=== PATIENT | male | born 1995 | race Caucasian/White ===

== ENCOUNTER 2017-02-15 13:32 | Emergency (ER) | payer OTHER ==
[2017-02-15 16:08] VITALS: BP 153/93
--- NOTE | 2017-02-15 16:22 | ED ---
Skin Complaint - HPI Summary HPI Summary: Pt here w/ ruptured cyst/abscess in Lt ear lobe, Has had a "lump" here for 1 year but thinks he may have bumped it over the weekend and popped it - past 2 days it's been red, swollen and tender. Denies fever, chills, enlarged LN's, neck pain/stiffness. Has not taken anything for pain. Reports he had the same issue in the Rt ear a few years ago - this required drainage and it improved after. Denies known h/o MRSA. - History of Current Complaint Chief Complaint: EDGeneral Time Seen by Provider: 02/15/17 15:35 Stated Complaint: ABSCESS ON EARLOBE Hx Obtained From: Patient Pain Intensity: 8 - Allergy/Home Medications Allergies/Adverse Reactions: Allergies Allergy/AdvReac Type Severity Reaction Status Date / Time No Known Allergies Allergy Verified 10/18/15 19:31 PMH/Surg Hx/FS Hx/Imm Hx Previously Healthy: Yes Endocrine/Hematology History: Denies: Hx Anticoagulant Therapy Psychiatric History: Reports: Hx Anxiety - Surgical History Surgery Procedure, Year, and Place: L arm surgery Infectious Disease History: No Infectious Disease History: Denies: Hx of Known/Suspected MRSA, Traveled Outside the [place] in Last 30 Days - Family History Known Family History: Positive: Other - bipolar d/o - Social History Occupation: Unemployed Lives: With Family Alcohol Use: Weekly Substance Use Type: Reports: Cocaine - last used 01/2017, Marijuana - almost daily Hx Tobacco Use: Yes Smoking Status (MU): Current Every Day Smoker Type: Cigarettes Amount Used/How Often: 1PPD Review of Systems Constitutional: Negative Negative: Fever, Chills Positive: Ear Ache - see HPI Negative: Chest Pain Negative: Shortness Of Breath Negative: Vomiting, Nausea Positive: no symptoms reported Skin: Other - see HPI Negative: Headache Psychological: Normal All Other Systems Reviewed And Are Negative: Yes Physical Exam Triage Information Reviewed: Yes Vital Signs On Initial Exam: Initial Vitals Temp Pulse Resp BP Pulse Ox 98.2 F 72 17 148/90 97 02/15/17 13:50 02/15/17 13:50 02/15/17 13:50 02/15/17 13:50 02/15/17 13:50 Vital Signs Reviewed: Yes Appearance: Positive: Well-Appearing, No Pain Distress, Well-Nourished Skin: Positive: Warm, Dry - erythematous, edematous Lt ear lobe w/ palpable area of inflammation/bogginess Head/Face: Positive: Normal Head/Face Inspection Eyes: Positive: Normal, EOMI, Conjunctiva Clear. Negative: Discharge ENT: Positive: Hearing grossly normal, Other - EAC patent Neck: Positive: Supple, Nontender, No Lymphadenopathy Respiratory/Lung Sounds: Positive: Breath Sounds Present Cardiovascular: Positive: Normal Musculoskeletal: Positive: Normal, Strength/ROM Intact Neurological: Positive: Normal, Sensory/Motor Intact, Alert, Oriented to Person Place, Time, CN Intact II-III Psychiatric: Positive: Normal Procedures - Incision and Drainage Site: Lt posterior ear lobe Anesthesia: Topical - 1st attempted aspiration - 18 gauge clogged, Local, Lidocaine Instrument(s): Scalpel - #11 - expressed sebacious material and bloody d/c Packing: Other - sterile wound dressing Diagnostics - Vital Signs Vital Signs Temp Pulse Resp BP Pulse Ox 02/15/17 15:58 98.1 F 75 16 153/93 100 02/15/17 13:50 98.2 F 72 17 148/90 97 - Laboratory Lab Statement: Any lab studies that have been ordered have been reviewed, and results considered in the medical decision making process. Re-Evaluation - Re-Evaluation First Eval Change: Improved - pressure relief upon drainage Course/Dx - Course Course Of Treatment: Pt appears to have had a ruptured sebaceous cyst in Lt ear lobe - first attempted aspiration as was suspected to be abscess however material obstructed needle and this was converted to a formal I&D - sebaceous material expressed and parts of sac - was left open to drain to prevent reformation but area too small for packing. Dressed with gauze and pt provided with wound care. Discussed danger s/sx of when to return to ED - otherwise will f/u w/ PCP. - Diagnoses Provider Diagnoses: Abscess, earlobe Discharge - Discharge Plan Condition: Stable Disposition: HOME Patient Education Materials: Abscess (ED) Referrals: [facility] [place] [Outside] Additional Instructions: You appear to have had a ruptured sebacious cyst in your Left earlobe. This was drained today and may continue to drain as it heals. Keep clean by washing with soap and water daily - cover to catch drainage. You may also apply epsom salt compresses to reduce swelling and aid in drainage. Follow-up with PCP for wound recheck and to review culture results. If they grow bacteria and you are not improving, you may need an antibiotic. Call today to schedule follow-up by end of the week. *if you develop fever, chills, neck pain/swelling, return to ED
[2017-02-15] MEDS ORDERED: Ibuprofen TAB* 800 MG PO ONE (16:33)
[2017-02-15] MEDS ORDERED: Lidocaine 2.5%/Prilocain 2.5%* 5 GM TUBE TOPICAL ONE (16:38)
== END 2017-02-15 18:04 | disposition home or self-care (01) ==
LOC: ED 13:32
DX: H66.42 Suppurative otitis media, unspecified, left ear (principal); F17.210 Nicotine dependence, cigarettes, uncomplicated
CPT/HCPCS: 87070; 87205; 99282; A9270-GY

== ENCOUNTER 2018-04-29 14:24 | Emergency (ER) | payer OTHER ==
[2018-04-29 14:33] VITALS: BP 147/100
[2018-04-29] MEDS ORDERED: Morphine VIAL* 10 MG/ML 1 ML VIAL IV ONE (17:46)
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
[2018-04-29 18:07] LABS: ABS Basophils 0 10^3/ul (0-0.2); ABS Eosinophils 0.1 10^3/ul (0-0.6); ABS Monocytes 0.8 10^3/ul (0-0.8); ABS Neutrophils 6.3 10^3/ul (1.5-7.7); ABS Nucleated RBC 0 10^3/ul; Eosinophil % 0.6 % (0-6); Hematocrit 43 % (42-52); Hemoglobin 15.2 g/dl (14.0-18.0); Lymphocyte % 22.3 % (25-47); Mean Corpuscular HGB Conc 36 g/dl (31-36); Mean Corpuscular Hemoglobin 33 pg (27-31); Mean Corpuscular Volume 91 fL (80-94); Mean Platelet Volume 8.5 um3 (7.4-10.4); Nucleated Red Blood Cells % 0.1; Platelet Count 192 10^3/ul (150-450); Red Blood Count 4.67 10^6/ul (4.00-5.40); Red Cell Distribution Width 13 % (10.5-15); White Blood Count 9.2 10^3/ul (3.5-10.8)
[2018-04-29 18:23] LABS: EGFR Non-African American 91.5 (>60)
[2018-04-29] MEDS ORDERED: Iohexol 300* (CONTRAST) 10 ML SDV IV ONE (18:32)
[2018-04-29] MEDS ORDERED: HYDROmorphone INJ* 2 MG/ML CARPUJECT SYRINGE IV SLOW PU PRN (19:20)
[2018-04-29] MEDS ORDERED: HYDROmorphone INJ* 2 MG/ML CARPUJECT SYRINGE ONE (19:23)
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
[2018-04-29] MEDS ORDERED: Cyclobenzaprine TAB* 10 MG PO ONE (20:14)
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
== END 2018-04-29 20:28 | disposition home or self-care (01) ==
LOC: ED 14:24
DX: S09.90XA Unspecified injury of head, initial encounter (principal); M25.511 Pain in right shoulder; M54.2 Cervicalgia; R07.89 Other chest pain; V47.0XXA Car driver injured in collision with fixed or stationary object in nontraffic accident, initial encounter; Y92.410 Unspecified street and highway as the place of occurrence of the external cause; F17.210 Nicotine dependence, cigarettes, uncomplicated
CPT/HCPCS: 36415; 70450; 71260; 72125; 74177; 80053; 85025; 96374; 96375; 99283; A9270-GY; J1170; J2270; Q9967

== ENCOUNTER 2018-10-25 18:46 | Emergency (ER) | payer OTHER ==
[2018-10-25 18:59] VITALS: BP 143/91
== END 2018-10-25 22:43 | disposition left against medical advice (07) ==
LOC: ED 18:46
DX: M79.673 Pain in unspecified foot (principal); Z53.21 Procedure and treatment not carried out due to patient leaving prior to being seen by health care provider

== ENCOUNTER 2019-03-20 18:31 | Emergency (ER) | payer OTHER ==
[2019-03-20] MEDS ORDERED: Azithromycin TAB* 250 MG PO ONE (19:10)
[2019-03-20] MEDS ORDERED: cefTRIAXone VIAL(*) 250 MG VIAL IM ONE (19:10)
[2019-03-20] MEDS ORDERED: Lidocaine 1% MPF ** 5 ML VIAL IM ONE (19:10)
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
[2019-03-20 19:56] VITALS: BP 143/86
== END 2019-03-20 19:55 | disposition home or self-care (01) ==
LOC: ED 18:31
DX: Z20.2 Contact with and (suspected) exposure to infections with a predominantly sexual mode of transmission (principal); F17.210 Nicotine dependence, cigarettes, uncomplicated
CPT/HCPCS: 96372; 99282; A9270-GY; J0696

== ENCOUNTER 2019-06-28 02:43 | Emergency (ER) | payer OTHER ==
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
[2019-06-28] MEDS ORDERED: Ibuprofen TAB* 400 MG PO ONE (03:12)
[2019-06-28 04:54] VITALS: BP 132/97
== END 2019-06-28 03:55 | disposition home or self-care (01) ==
LOC: ED 02:43
DX: S80.02XA Contusion of left knee, initial encounter (principal); S30.0XXA Contusion of lower back and pelvis, initial encounter; S00.93XA Contusion of unspecified part of head, initial encounter; S20.219A Contusion of unspecified front wall of thorax, initial encounter; Y04.2XXA Assault by strike against or bumped into by another person, initial encounter; Y92.9 Unspecified place or not applicable; F41.9 Anxiety disorder, unspecified; F17.210 Nicotine dependence, cigarettes, uncomplicated
CPT/HCPCS: 99282; A9270-GY

== ENCOUNTER 2019-07-16 18:38 | Emergency (ER) | payer OTHER ==
[2019-07-16 18:42] VITALS: BP 136/99
== END 2019-07-16 20:50 | disposition left against medical advice (07) ==
LOC: ED 18:38
DX: Z53.21 Procedure and treatment not carried out due to patient leaving prior to being seen by health care provider (principal); S89.92XA Unspecified injury of left lower leg, initial encounter
CPT/HCPCS: 99281

== ENCOUNTER 2019-08-14 11:00 | Emergency (ER) | payer OTHER | END 2019-08-14 11:15 | disposition left against medical advice (07) | LOC: UCEAST 11:00 | DX: Z53.21 Procedure and treatment not carried out due to patient leaving prior to being seen by health care provider (principal) ==

== ENCOUNTER 2019-08-14 12:13 | Emergency (ER) | payer OTHER ==
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
[2019-08-14 14:05] VITALS: BP 0/0
== END 2019-08-14 14:03 | disposition home or self-care (01) ==
LOC: ED 12:13
DX: R45.1 Restlessness and agitation (principal); S62.641A Nondisplaced fracture of proximal phalanx of left index finger, initial encounter for closed fracture; S00.81XA Abrasion of other part of head, initial encounter; S60.512A Abrasion of left hand, initial encounter; S60.511A Abrasion of right hand, initial encounter; S20.419A Abrasion of unspecified back wall of thorax, initial encounter; Y04.8XXA Assault by other bodily force, initial encounter; Y92.9 Unspecified place or not applicable; M25.512 Pain in left shoulder; M79.642 Pain in left hand; M79.632 Pain in left forearm; M79.661 Pain in right lower leg; R53.83 Other fatigue; F17.210 Nicotine dependence, cigarettes, uncomplicated
CPT/HCPCS: 70450; 72125; 99284

== ENCOUNTER 2019-08-19 19:46 | Emergency (ER) | payer OTHER ==
[2019-08-19 20:05] VITALS: BP 167/105
== END 2019-08-19 21:35 | disposition left against medical advice (07) ==
LOC: ED 19:46
DX: S09.93XA Unspecified injury of face, initial encounter (principal); S09.92XA Unspecified injury of nose, initial encounter; S69.91XA Unspecified injury of right wrist, hand and finger(s), initial encounter; X58.XXXA Exposure to other specified factors, initial encounter; Y92.9 Unspecified place or not applicable; Z53.21 Procedure and treatment not carried out due to patient leaving prior to being seen by health care provider
CPT/HCPCS: 99282

== ENCOUNTER 2019-10-27 11:43 | Emergency (ER) | payer OTHER ==
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
[2019-10-27 12:13] VITALS: BP 131/95
== END 2019-10-27 12:12 | disposition home or self-care (01) ==
LOC: ED 11:43
DX: F31.9 Bipolar disorder, unspecified (principal); F41.9 Anxiety disorder, unspecified; M25.562 Pain in left knee; Z76.0 Encounter for issue of repeat prescription; F17.210 Nicotine dependence, cigarettes, uncomplicated
CPT/HCPCS: 99281

== ENCOUNTER 2023-02-22 00:46 | Observation (INO) ==
[2023-02-22 02:38] LABS: ABS Eosinophils 0.2 10^3/uL (0.0-0.5); ABS Lymphocytes 1.6 10^3/uL (1.0-4.8); ABS Monocytes 0.7 10^3/uL (0.0-1.1); Eosinophil % 2.7 %; Hematocrit 40.9 % (38-53); Hemoglobin 14.1 g/dL (13.2-16.3); Mean Corpuscular Hemoglobin 31.5 pg (27-33); Mean Corpuscular Hgb Conc 34.5 g/dL (31-36); Mean Corpuscular Volume 91.2 fL (80-97); Mean Platelet Volume 8.6 fL (7.5-11.2); Platelet Count 191 10^3/uL (150-450); Red Blood Count 4.49 10^6/uL (4.06-5.63); Red Cell Distribution Width 12.3 % (12-17); White Blood Count 6.5 10^3/uL (3.6-10.2)
[2023-02-22] MEDS ORDERED: ceFAZolin 1 GM ADVAN 1 GM in NS 0.9% 50 ML 50 ML IVPB ONE (02:41)
[2023-02-22 02:55] LABS: ALT 35 U/L (7-52); AST 35 U/L (13-39); Albumin 4.2 g/dL (3.2-5.2); Albumin/Globulin Ratio 1.8 (1-3); Alkaline Phosphatase 93 U/L (35-149); Anion Gap 6 mmol/L (2-16); Blood Urea Nitrogen 19 mg/dL (6-24); C Reactive Protein < 1.00 mg/L (<8.01); CO2 Carbon Dioxide 32 mmol/L (22-32); Calcium 9.2 mg/dL (8.6-10.3); Chloride 101 mmol/L (101-111); Globulin 2.4 g/dL (2-4); Glucose 119 mg/dL (70-100); Potassium 3.6 mmol/L (3.5-5.0); Sodium 139 mmol/L (135-145); Total Protein 6.6 g/dL (6.4-8.9); eGFR CKD-EPI 124.4 (>60)
[2023-02-22] MEDS ORDERED: Vancomycin 1,500 MG in NS 0.9% 250 ml 250 ML IVPB ONE (08:58)
[2023-02-22] MEDS ORDERED: Cefepime 1 GM in Dextrose 1 GM/50 ML BAG IV ONE (08:58)
[2023-02-22] MEDS ORDERED: Vancomycin 1,000 MG in NS 0.9% 250 ml 250 ML IVPB ONE (09:13)
[2023-02-22] MEDS ORDERED: Vancomycin per Pharmacy 1 EA NOTE FOLLOW UP SCH (10:00)
[2023-02-22] MEDS ORDERED: Polyethylene Glycol 3350 17 GM PACKET PO PRN (10:14)
[2023-02-22] MEDS ORDERED: Magnesium Hydroxide LIQ 30 ML UDC PO PRN (10:14)
[2023-02-22] MEDS ORDERED: Al Hydrox/Mg Hydrox/Simet LIQ 30 ML UDC PO PRN (10:14)
[2023-02-22 10:25] LABS: Urine Appearance Turbid; Urine Bilirubin Negative (Negative); Urine Blood Negative (Negative); Urine Color Yellow; Urine Glucose Negative (Negative); Urine Ketones Negative (Negative); Urine Nitrite Negative (Negative); Urine Protein Negative (Negative); Urine Specific Gravity 1.021 (1.002-1.030); Urine Urobilinogen Negative (Negative)
[2023-02-22 10:35] LABS: Urine Benzodiazepine Screen None Detected (None Detect); Urine Cannabinoids Screen Presumptive Positive (None Detect); Urine Opiates Screen None Detected (None Detect)
[2023-02-22] MEDS ORDERED: Iohexol 350 (CONTRAST) 500 ML MDV IV ONE (11:41)
[2023-02-22] MEDS: Buprenorp/Nalox 12-3 MG FILM SL SCH ×2 (12:41→21:10)
[2023-02-22] MEDS: Nicotine GUM 4MG FRUIT FLAVOR PO PRN ×2 (13:54→16:13)
[2023-02-22] MEDS: Nicotine PATCH 21 MG/24 HR PATCH TRANSDERM SCH (14:35)
[2023-02-22] MEDS ORDERED: Buprenorp/Nalox 8-2 MG FILM SL PRN (15:38)
[2023-02-22] MEDS ORDERED: Vancomycin 1,250 MG in NS 0.9% 250 ml 250 ML IVPB SCH (18:00)
[2023-02-22] MEDS ORDERED: Cefepime 1 GM in Dextrose 1 GM/50 ML BAG IV SCH (21:00)
[2023-02-22] MEDS ORDERED: CEFEPIME 2 GM in Dextrose 50 mL IV SCH (21:00)
[2023-02-23] MEDS: Vancomycin 1,250 MG in NS 0.9% 250 ml 250 ML IVPB SCH ×2 (02:23→13:06)
[2023-02-23 06:13] LABS: ABS Basophils 0.1 10^3/uL (0.0-0.1); ABS Eosinophils 0.2 10^3/uL (0.0-0.5); ABS Lymphocytes 1.9 10^3/uL (1.0-4.8); ABS Monocytes 0.5 10^3/uL (0.0-1.1); ABS Neutrophils 4.6 10^3/uL (1.5-7.6); ABS Nucleated RBC 0.01 10^3/ul; Eosinophil % 2.3 %; Hematocrit 44.2 % (38-53); Lymphocyte % 26.4 %; Mean Corpuscular Hgb Conc 33.9 g/dL (31-36); Mean Corpuscular Volume 91.4 fL (80-97); Mean Platelet Volume 9.3 fL (7.5-11.2); Nucleated Red Blood Cells % 0.1 /100 WBC (0.0-0.4); Platelet Count 197 10^3/uL (150-450); Red Blood Count 4.83 10^6/uL (4.06-5.63); Red Cell Distribution Width 12.2 % (12-17); White Blood Count 7.2 10^3/uL (3.6-10.2)
[2023-02-23] MEDS: Buprenorp/Nalox 12-3 MG FILM SL SCH (08:30)
[2023-02-23] MEDS: Nicotine PATCH 21 MG/24 HR PATCH TRANSDERM SCH (08:53)
[2023-02-23] MEDS ORDERED: DULoxetine DR 30 mg CAP PO SCH (09:00)
[2023-02-23] MEDS ORDERED: Buprenorp/Nalox 8-2 MG FILM SL SCH (09:00)
[2023-02-23] MEDS ORDERED: CEFEPIME 2 GM in Dextrose 50 mL IV SCH (09:00)
[2023-02-23 09:29] LABS: Creatinine, Serum 0.87 mg/dL (0.67-1.17); eGFR CKD-EPI 121.3 (>60)
[2023-02-23] MEDS ORDERED: Vancomycin Trough Check NOTE FOLLOW UP ONE (09:30)
[2023-02-23 10:01] LABS: Vancomycin Trough 12.2 mcg/mL
[2023-02-23] MEDS ORDERED: Tetan/Diph/Pertus SYR(Tdap) 0.5 ML SYR(BOOSTRIX) use SYR contains LATEX IM ONE (10:25)
[2023-02-23] MEDS ORDERED: Oritavancin 400 mg/40 mL Vial 1,200 MG in D5W 1000 ML BAG 880 ML IV ONE (11:00)
[2023-02-23 11:21] VITALS: BP 114/77
== END 2023-02-23 13:19 | disposition left against medical advice (07) ==
LOC: ED 00:46 → EDHOLD 00:46 → SSU 23:19
PROVIDERS: ADMIT Internal Medicine; ATTEND Internal Medicine

== ENCOUNTER 2023-06-15 16:35 | Inpatient (IN) ==
[2023-06-15] MEDS ORDERED: fentaNYL 100 mcg/2 ml 50 MCG/ML VIAL IV SLOW PU ONE (17:27)
[2023-06-15 17:41] LABS: ABS Eosinophils 0.2 10^3/uL (0.0-0.5); ABS Lymphocytes 1.5 10^3/uL (1.0-4.8); ABS Monocytes 0.7 10^3/uL (0.0-1.1); ABS Neutrophils 4.8 10^3/uL (1.5-7.6); ABS Nucleated RBC 0.01 10^3/ul; Eosinophil % 3.4 %; Hematocrit 41.2 % (38-53); Lymphocyte % 20.1 %; Mean Corpuscular Hemoglobin 30.3 pg (27-33); Mean Corpuscular Volume 89.3 fL (80-97); Mean Platelet Volume 8.4 fL (7.5-11.2); Nucleated Red Blood Cells % 0.2 %/100WBC (0.0-0.8); Platelet Count 262 10^3/uL (150-450); Red Blood Count 4.62 10^6/uL (4.06-5.63); Red Cell Distribution Width 12.5 % (12-17); White Blood Count 7.3 10^3/uL (3.6-10.2)
[2023-06-15 18:10] LABS: ALT 30 U/L (7-52); AST 28 U/L (13-39); Albumin 4.2 g/dL (3.2-5.2); Albumin/Globulin Ratio 1.8 (1-3); Alkaline Phosphatase 113 U/L (35-149); Anion Gap 5 mmol/L (2-16); Blood Urea Nitrogen 13 mg/dL (6-24); CO2 Carbon Dioxide 33 mmol/L (22-32); Chloride 102 mmol/L (101-111); Creatinine, Serum 0.71 mg/dL (0.67-1.17); Globulin 2.4 g/dL (2-4); Glucose 87 mg/dL (70-100); Potassium 3.5 mmol/L (3.5-5.0); Sodium 140 mmol/L (135-145); Total Bilirubin 0.3 mg/dL (0.2-1.0); Total Protein 6.6 g/dL (6.4-8.9); eGFR CKD-EPI 128.2 (>60)
[2023-06-15 18:16] LABS: TSH Ultra Thyroid Stim Horm 3.13 mcIU/mL (0.34-5.60)
[2023-06-15 18:48] LABS: Alcohol, S < 13 mg/dL (<13); Salicylate < 2.50 mg/dL (<30)
[2023-06-15 21:36] LABS: Acetaminophen < 15 mcg/mL
[2023-06-16 08:41] LABS: Urine Appearance Cloudy; Urine Bilirubin Negative (Negative); Urine Blood Negative (Negative); Urine Color Yellow; Urine Glucose Negative (Negative); Urine Ketones Negative (Negative); Urine Nitrite Negative (Negative); Urine Protein Negative (Negative); Urine Specific Gravity 1.018 (1.002-1.030); Urine Urobilinogen Negative (Negative)
[2023-06-16] MEDS ORDERED: Al Hydrox/Mg Hydrox/Simet LIQ 30 ML UDC PO PRN (08:46)
[2023-06-16] MEDS ORDERED: Nicotine GUM 4MG FRUIT FLAVOR PO PRN (08:46)
[2023-06-16] MEDS ORDERED: Dexmedetomidine HCL 180 MCG FILM SL PRN (08:49)
[2023-06-16 09:46] LABS: Urine Benzodiazepine Screen None Detected (None Detect); Urine Cannabinoids Screen Presumptive Positive (None Detect); Urine Opiates Screen None Detected (None Detect)
[2023-06-16] MEDS ORDERED: Haloperidol 5 mg/ml SDV IV/IM 5 MG/ML AMP IM ONE (10:22)
[2023-06-16] MEDS: Buprenorp/Nalox 12-3 MG FILM SL SCH (12:01)
[2023-06-16] MEDS: Magic MouthWash1-BEN/MAAL/LIDO 180 ML BTL SWISH SPIT SCH (21:00)
[2023-06-17] MEDS: Buprenorp/Nalox 12-3 MG FILM SL SCH ×3 (09:01→21:23)
[2023-06-17] MEDS: Nicotine PATCH 21 MG/24 HR PATCH TRANSDERM SCH (09:03)
[2023-06-17] MEDS: Magic MouthWash1-BEN/MAAL/LIDO 180 ML BTL SWISH SPIT SCH ×2 (09:31→21:23)
[2023-06-18] MEDS: Buprenorp/Nalox 12-3 MG FILM SL SCH ×2 (12:21→21:56)
[2023-06-18] MEDS: Nicotine PATCH 21 MG/24 HR PATCH TRANSDERM SCH (12:24)
[2023-06-18] MEDS: Magic MouthWash1-BEN/MAAL/LIDO 180 ML BTL SWISH SPIT SCH ×2 (12:26→21:56)
[2023-06-19] MEDS: Buprenorp/Nalox 12-3 MG FILM SL SCH ×2 (10:22→22:00)
[2023-06-19] MEDS: Magic MouthWash1-BEN/MAAL/LIDO 180 ML BTL SWISH SPIT SCH ×2 (10:22→20:58)
[2023-06-19] MEDS: Nicotine PATCH 21 MG/24 HR PATCH TRANSDERM SCH (13:09)
[2023-06-20] MEDS: Nicotine PATCH 21 MG/24 HR PATCH TRANSDERM SCH (07:25)
[2023-06-20] MEDS: Magic MouthWash1-BEN/MAAL/LIDO 180 ML BTL SWISH SPIT SCH (07:45)
[2023-06-20] MEDS: Buprenorp/Nalox 12-3 MG FILM SL SCH (07:46)
[2023-06-21] MEDS: Buprenorp/Nalox 4-1 MG FILM SL SCH ×3 (09:05→20:38)
[2023-06-21] MEDS: Magic MouthWash1-BEN/MAAL/LIDO 180 ML BTL SWISH SPIT SCH ×3 (09:06→20:38)
[2023-06-21 09:15] VITALS: BP 137/87
[2023-06-21] MEDS: Nicotine PATCH 21 MG/24 HR PATCH TRANSDERM SCH (11:10)
[2023-06-22] MEDS: Nicotine PATCH 21 MG/24 HR PATCH TRANSDERM SCH (08:59)
[2023-06-22] MEDS: Magic MouthWash1-BEN/MAAL/LIDO 180 ML BTL SWISH SPIT SCH ×2 (09:02→20:24)
[2023-06-22] MEDS: Buprenorp/Nalox 4-1 MG FILM SL SCH ×2 (13:22→22:22)
[2023-06-23] MEDS: Buprenorp/Nalox 4-1 MG FILM SL SCH (09:09)
[2023-06-23] MEDS: Nicotine PATCH 21 MG/24 HR PATCH TRANSDERM SCH (09:09)
[2023-06-23] MEDS: Magic MouthWash1-BEN/MAAL/LIDO 180 ML BTL SWISH SPIT SCH (09:10)
== END 2023-06-23 09:26 | disposition home or self-care (01) | DRG 774 ==
LOC: ED 16:35 → BSU 06-16 08:46
PROVIDERS: ADMIT Psychiatry & Neurology Psychiatry; ATTEND Psychiatry & Neurology Psychiatry